=== PATIENT | female | born 1985 | race Hispanic/Latino ===

== ENCOUNTER 2023-02-09 19:03 | Emergency (ER) | payer SELFPAY ==
[2023-02-09] MEDS ORDERED: diphenhydrAMINE 25 MG CAP ONE (20:18)
[2023-02-09] MEDS ORDERED: predniSONE 20 MG TAB ONE (20:18)
== END 2023-02-09 20:22 | disposition home or self-care (01) ==
LOC: ERS 19:03
DX: R21 Rash and other nonspecific skin eruption (principal)
CPT/HCPCS: 99282; J7512

== ENCOUNTER 2024-11-02 01:05 | Emergency (ER) | payer SELFPAY ==
[2024-11-02 03:58] LABS: #Basophils 0.03 10x3/uL (0.0-0.2); #Eosinophils 0.33 10x3/uL (0.0-0.7); #Monocytes 0.20 10x3/uL (0.11-0.59); #Neutrophils 7.84 10x3/uL (1.40-6.50); %Basophils 0.3 % (0.0-1.0); %Eosinophils 3.1 % (0.0-10.0); %Lymphocytes 20.2 % (21.0-51.0); %Monocytes 1.9 % (0.0-10.0); %Neutrophils 74.2 % (42.0-75.0); Hematocrit 31.2 % (36.0-47.0); Hemoglobin 10.0 g/dL (12.0-16.0); Mean Corpuscular Hemoglobin 26.7 pg (27.0-31.0); Mean Corpuscular Volume 83.4 fL (78.0-98.0); Platelet Count 375 10x3/uL (130-400); Red Blood Cell (RBC) Count 3.74 mill/uL (4.20-5.40); White Blood Cell (WBC) Count 10.57 10x3/uL (4.8-10.8)
[2024-11-02 04:22] LABS: ALT (SGPT) 25 U/L (Less than 34); AST (SGOT) 27 U/L (11-34); Albumin 3.6 g/dL (3.1-4.5); Alkaline Phosphatase 76 U/L (40-110); Anion Gap 6 mmol/L (10-20); BUN (Urea Nitrogen) 18 mg/dL (7.0-18.7); Bilirubin, Total 0.9 mg/dL (0.3-1.2); Calc. Creatinine Clearance 0 mL/min (70-130); Calcium 8.5 mg/dL (7.8-10.44); Carbon Dioxide 22 mmol/L (22-29); Globulin 3.4 g/dL (2.4-3.5); Glucose 90 mg/dL (70-105); Lipase 19 U/L (8-78); Potassium 3.6 mmol/L (3.5-5.1); Sodium 138 mmol/L (136-145)
[2024-11-02 04:24] LABS: BHCG - Serum Negative (NEGATIVE); Pregs Control Background? CLEAR/WHITE (CLR/WHITE); Pregs Control Bar Appear? YES (CONTROL BAR)
[2024-11-02 04:46] LABS: Chloride 107 mmol/L (98-107)
[2024-11-02] MEDS ORDERED: Dexamethasone 10 MG/ML VIAL ONE (05:07)
== END 2024-11-02 08:22 | disposition home or self-care (01) ==
LOC: ERS 01:05
DX: R07.9 Chest pain, unspecified (principal); B34.9 Viral infection, unspecified; M06.9 Rheumatoid arthritis, unspecified
CPT/HCPCS: 36415; 71045; 80053; 83036; 83605; 83690; 83880; 84484; 84703; 85025; 87426; 93005; 96372; 96374; 96375; J1100; J2270